=== PATIENT | male | born 2000 | race Two or more races ===

== ENCOUNTER 2021-10-12 02:20 | Emergency (ER) | payer OTHER ==
[~2021-10-12] VITALS: Ht 177.8 cm; Wt 87.2 kg
[2021-10-12] MEDS ORDERED: IBUPROFEN 400 MG TABLET. PO ONE (04:30)
[2021-10-12] MEDS ORDERED: BENZONATATE 100 MG CAPSULE. PO ONE (04:30)
[2021-10-12] MEDS ORDERED: ACETAMINOPHEN 500 MG TABLET PO ONE (04:30)
[2021-10-12 05:03] LABS: INFLUENZA B PATIENT NEGATIVE (NEGATIVE)
[2021-10-12 05:05] LABS: INFLUENZA A PATIENT POSITIVE (NEGATIVE)
--- NOTE | 2021-10-12 05:15 | PHYS DOC ---
Adult General Chief Complaint Chief Complaint: COUGH HPI HPI The patient is a 21-year-old otherwise healthy male who presents for evaluation of around 24 hours of fever, nasal congestion, rhinorrhea, dry cough, sore throat, fatigue, malaise and body aches. Vaccinated against COVID. Vital signs appropriate here aside from fever. Review of Systems Review of Systems A 12 point review of systems was completed and was negative except where noted in HPI above. Current Medications Current Medications Current Medications Medications (Trade) Dose Ordered Sig/Michele Start Time Stop Time Status Last Admin Dose Admin Acetaminophen (Tylenol) 1,000 mg 1X ONCE 10/12/21 04:30 10/12/21 04:33 DC 10/12/21 04:49 1,000 MG Benzonatate (Tessalon Perle) 100 mg 1X ONCE 10/12/21 04:30 10/12/21 04:33 DC 10/12/21 04:48 100 MG Ibuprofen (Motrin) 800 mg 1X ONCE 10/12/21 04:30 10/12/21 04:33 DC 10/12/21 04:49 800 MG Allergies Allergies Allergies Coded Allergies Type Severity Reaction Last Updated Verified No Known Drug Allergies 10/12/21 No Physical Exam Physical Exam 21-year-old male appearing nontoxic and in no acute distress. Head is normocephalic and atraumatic. Neck is supple and nontender. Oropharynx is moist. Lungs are clear to auscultation at all stations. There is a normal S1 and S2 without rubs or gallops and capillary refill is appropriate, less than 2 seconds globally. Abdomen is soft, nontender and nondistended. Skin is warm and dry without cyanosis, clubbing or edema. Psychiatrically, the patient demonstrates appropriate mood and affect and is alert. Current Patient Data Lab Values Laboratory Tests Test 10/12/21 04:40 Influenza Type A Antigen Positive (NEGATIVE) *A Influenza Type B Antigen Negative (NEGATIVE) SARS-CoV-2 Antigen (Rapid) Negative (NEGATIVE) EKG EKG [] Radiology/Procedures Radiology/Procedures [] Course & Med Decision Making Course & Med Decision Making Well-appearing 21-year-old with influenza A. Offered a prescription for Tamiflu but patient states he would rather take noci-sop-epexmaw medication which is very reasonable. Discharging home with a work note to follow-up closely with primary care and to return to the emergency department right away if symptoms worsen or if other new symptoms of concern develop. All questions are answered. Dragon Disclaimer Dragon Disclaimer This electronic medical record was generated, in whole or in part, using a voice recognition dictation system. Departure Departure Impression: Primary Impression: Influenza A Disposition: HOME / SELF CARE / HOMELESS Condition: IMPROVED Patient Instructions: Upper Respiratory Infection, Adult Additional Instructions: Testing shows that you have influenza A. Follow-up very closely with your primary care doctor in the office in the next 2 to 4 days for a reevaluation of your symptoms and a discussion of next best steps in care. Drink plenty of fluids to stay hydrated and get plenty of rest. Recommend purchasing o [id number] DayQuil and NyQuil to help with symptoms. Return to the emergency department right away for worsening symptoms of any kind or with any other new symptoms of concern JH OSULLIVAN MD Oct 12, 2021 05:15
[2021-10-12 06:13] VITALS: BP 121/71
== END 2021-10-12 05:40 | disposition home or self-care (01) ==
LOC: ER 02:20
DX: J10.1 Influenza due to other identified influenza virus with other respiratory manifestations (principal); Z20.822 Contact with and (suspected) exposure to COVID-19
CPT/HCPCS: 87428; 99284